=== PATIENT | female | born 1955 | race Caucasian/White ===

== ENCOUNTER 2024-10-05 13:36 | Inpatient (IN) | payer BC, MEDICAID ==
[~2024-10-05] VITALS: Ht 152.4 cm; Wt 68.0 kg
[2024-10-05] MEDS ORDERED: POLY250017 PO (13:51)
[2024-10-05] MEDS ORDERED: ACET-3117 PO (13:51)
[2024-10-05] MEDS ORDERED: OMEP20TA5 PO (13:51)
[2024-10-05] MEDS ORDERED: INSU100V28 SUBCUT (13:51)
[2024-10-05] MEDS ORDERED: IPRA3AMP22 IH (13:51)
[2024-10-05] MEDS ORDERED: ACET-2030 PO (13:51)
[2024-10-05 14:26] LABS: BASOPHILS # (AUTO) 0.1 K/UL (0.0-0.2); BASOPHILS % (AUTO) 1.2 % (0.0-2.0); EOSINOPHILS # (AUTO) 0.4 K/uL (0.0-0.7); EOSINOPHILS % (AUTO) 6.6 % (0.0-7.0); HEMATOCRIT 32.4 % (31.2-41.9); HEMOGLOBIN 10.3 g/dL (10.9-14.3); LYMPHOCYTES # (AUTO) 2.1 K/uL (0.8-4.8); LYMPHOCYTES % (AUTO) 38.7 % (20.5-51.5); MEAN CORPUSCULAR HEMOGLOBIN 22.9 uug (24.7-32.8); MEAN CORPUSCULAR HGB CONC 32 g/dL (32.3-35.6); MEAN CORPUSCULAR VOLUME 72.1 fL (75.5-95.3); MONOCYTES # (AUTO) 0.4 K/uL (0.1-1.30); MONOCYTES % (AUTO) 6.5 % (0.0-11.0); NEUTROPHILS # (AUTO) 2.5 K/uL (1.8-8.9); PLATELET COUNT (AUTO) 217 K/uL (179-408); RED BLOOD CELL COUNT(AUTO) 4.49 MIL/uL (3.63-4.92); WHITE BLOOD COUNT (AUTO) 5.4 K/uL (3.8-11.8)
[2024-10-05 14:39] LABS: DIFFERENTIAL COMMENT 1
[2024-10-05 14:42] LABS: CALCIUM 9.1 mg/dL (8.5-10.1); CARBON DIOXIDE 23 mmol/L (21-32); CHLORIDE 102 mmol/L (98-107); CREATININE 0.8 mg/dL (0.6-1.3); GLUCOSE 142 mg/dL (74-106); POTASSIUM 3.9 mmol/L (3.5-5.1); SODIUM SERUM 137 mmol/L (136-145); UREA NITROGEN, BLOOD 9 mg/dL (7-18)
[2024-10-05 14:55] LABS: ALANINE AMINOTRANSFERASE 15 U/L (14-59); ALBUMIN 3.5 g/dL (3.4-5.0); ALKALINE PHOSPHATASE 100 U/L (50-136); ASPARTATE AMINOTRANSFERASE 15 U/L (15-37); BILIRUBIN,DIRECT 0.2 mg/dL (0.0-0.2); BILIRUBIN,TOTAL 0.4 mg/dL (0.2-1.0); NT-PRO BNP 621 pg/mL (0-125); TOTAL PROTEIN, SERUM 7.3 g/dL (6.4-8.2)
[2024-10-05] MEDS ORDERED: SWABABLE VALVE TRANSFER SET EA MC ONE (16:23)
[2024-10-05] MEDS ORDERED: IOHEXOL 350 100 ML INFUS..BTL ONE (16:24)
[2024-10-05] MEDS ORDERED: IV NORMAL SALINE 250 ML IV ONE (16:24)
[2024-10-05] MEDS ORDERED: METF-442 PO (16:32)
[2024-10-05] MEDS ORDERED: REMEDY ESSENTIAL ZINC PASTE 113 GM TP PRN (17:00)
[2024-10-05] MEDS ORDERED: ONDANSETRON 4 MG/2 ML VIAL IV PRN (17:00)
[2024-10-05] MEDS ORDERED: DEXTROSE 50% 50 ML DISP.SYRIN IV PRN (17:00)
[2024-10-05] MEDS ORDERED: MAGNESIUM HYDROXIDE 30 ML LIQUID UDC PO PRN (17:00)
[2024-10-05] MEDS: ENOXAPARIN SODIUM 80 MG/0.8 ML DISP.SYRIN SQ ONE (17:45)
[2024-10-05] MEDS ORDERED: ASPIRIN 325 MG TABLET ONE (17:48)
[2024-10-05] MEDS ORDERED: ENOXAPARIN SODIUM 40 MG/0.4 ML DISP.SYRIN SQ ONE (17:48)
[2024-10-05] MEDS: ASPIRIN 325 MG TABLET PO ONE (17:49)
[2024-10-05] MEDS: ENOXAPARIN SODIUM 40 MG/0.4 ML DISP.SYRIN SQ SCH (18:10)
[2024-10-05] MEDS ORDERED: ENOXAPARIN SODIUM 40 MG/0.4 ML DISP.SYRIN SQ SCH (18:50)
[2024-10-05 21:19] VITALS: BP 152/78; TEMP 97.9; O2SAT 97
[2024-10-05] MEDS: BLOOD SUGAR DIAGNOSTIC 1 EACH STRIP VI SCH (21:49)
[2024-10-05] MEDS: INSULIN REGULAR, HUMAN 1000 UNIT/10 ML VIAL SQ PRN (23:05)
[2024-10-06] VITALS (8 sets, daily range): BP systolic 131–181; BP diastolic 67–88; TEMP 97.4–98.5; O2SAT 92–100
[2024-10-06] MEDS: PANTOPRAZOLE SODIUM 40 MG TABLET.DR PO SCH (06:12)
[2024-10-06] MEDS: hydrALAZINE HCL 25 MG TABLET PO PRN (08:21)
[2024-10-06] MEDS: ASPIRIN 81 MG TAB.CHEW PO SCH (08:22)
[2024-10-06] MEDS: MIRALAX 17 GM POWD.PACK PO SCH (08:22)
[2024-10-06] MEDS: ACETAMINOPHEN 325 MG TABLET PO PRN (08:51)
[2024-10-06] MEDS: LOSARTAN POTASSIUM 50 MG TABLET PO SCH (08:52)
[2024-10-06] MEDS ORDERED: LOSARTAN POTASSIUM 50 MG TABLET PO SCH (09:00)
[2024-10-06] MEDS ORDERED: Medication Not On Formulary EA (Omeprazole 20 MG) PO SCH (09:00)
[2024-10-06 09:29] LABS: BASOPHILS % (AUTO) 0.9 % (0.0-2.0); EOSINOPHILS # (AUTO) 0.3 K/uL (0.0-0.7); EOSINOPHILS % (AUTO) 6.9 % (0.0-7.0); HEMATOCRIT 33.5 % (31.2-41.9); HEMOGLOBIN 10.8 g/dL (10.9-14.3); LYMPHOCYTES # (AUTO) 1.4 K/uL (0.8-4.8); LYMPHOCYTES % (AUTO) 29.6 % (20.5-51.5); MEAN CORPUSCULAR HEMOGLOBIN 23.1 uug (24.7-32.8); MEAN CORPUSCULAR HGB CONC 32 g/dL (32.3-35.6); MEAN CORPUSCULAR VOLUME 71.8 fL (75.5-95.3); MONOCYTES # (AUTO) 0.3 K/uL (0.1-1.30); MONOCYTES % (AUTO) 6.4 % (0.0-11.0); NEUTROPHILS # (AUTO) 2.6 K/uL (1.8-8.9); NEUTROPHILS % (AUTO) 56.2 % (38.5-71.5); PLATELET COUNT (AUTO) 216 K/uL (179-408); RED BLOOD CELL COUNT(AUTO) 4.67 MIL/uL (3.63-4.92); RED CELL DISTRIBUTION WIDTH 17.2 % (12.3-17.7); WHITE BLOOD COUNT (AUTO) 4.6 K/uL (3.8-11.8)
[2024-10-06 09:30] LABS: DIFFERENTIAL COMMENT 1
[2024-10-06 09:40] LABS: CALCIUM 9.3 mg/dL (8.5-10.1); CREATININE 0.7 mg/dL (0.6-1.3); MAGNESIUM 1.3 mg/dL (1.8-2.4); PHOSPHOROUS 4.9 mg/dL (2.5-4.9); POTASSIUM 3.6 mmol/L (3.5-5.1)
[2024-10-06] MEDS: MAGNESIUM SULFATE/D5W 100 ML IV SCH (11:38)
[2024-10-06] MEDS ORDERED: LISI40TA13 PO (12:07)
[2024-10-06] MEDS ORDERED: FERR-68 PO (12:07)
[2024-10-06] MEDS ORDERED: INSU100V7 SQ (12:07)
[2024-10-06] MEDS ORDERED: ASPI-1169 PO (12:07)
[2024-10-06] MEDS ORDERED: ATOR40TA PO (12:07)
[2024-10-06] MEDS ORDERED: AMLO5TAB4 PO (12:07)
[2024-10-06] MEDS: FERROUS SULFATE 325 MG TABEC PO SCH (16:07)
[2024-10-06] MEDS: INSULIN GLARGINE,HUM 300 UNITS/3 ML CARTRIDGE SQ SCH (21:00)
[2024-10-06] MEDS: ENOXAPARIN SODIUM 40 MG/0.4 ML DISP.SYRIN SQ SCH (21:00)
[2024-10-06] MEDS: ATORVASTATIN 40 MG TABLET PO SCH (21:10)
[2024-10-06] MEDS: AMLODIPINE 5 MG TABLET PO SCH (21:11)
[2024-10-07] VITALS (8 sets, daily range): BP systolic 141–190; BP diastolic 67–89; TEMP 97.6–98.1; O2SAT 98–99
[2024-10-07] MEDS ORDERED: AMLODIPINE 5 MG TABLET PO SCH ×2 (09:00→21:00)
[2024-10-07] MEDS ORDERED: ASPIRIN 81 MG TAB.CHEW PO SCH (09:00)
[2024-10-07] MEDS ORDERED: AMLO10TA59 PO (10:22)
[2024-10-07] MEDS ORDERED: HYDR-894 PO (10:22)
[2024-10-07] MEDS ORDERED: ASPI81TA31 PO (10:22)
[2024-10-07] MEDS ORDERED: Insulin Glargine,Hum SQ (10:22)
[2024-10-07] MEDS ORDERED: LOSA50TA3 PO (10:22)
[2024-10-07] MEDS: hydrALAZINE HCL 25 MG TABLET PO ONE (16:39)
[2024-10-07] MEDS: AMLODIPINE 10 MG TABLET PO SCH (20:34)
[2024-10-07] MEDS: MUPIROCIN 2% OINT 22 GM TUBE NS SCH (20:35)
[2024-10-07] MEDS: hydrALAZINE HCL 10 MG TABLET PO SCH (22:34)
[2024-10-08] VITALS (7 sets, daily range): BP systolic 120–191; BP diastolic 61–106; TEMP 97.9–98.5; O2SAT 94–100
[2024-10-08] MEDS ORDERED: HYDR-894 PO (13:43)
[2024-10-08] MEDS: hydrALAZINE HCL 25 MG TABLET PO SCH (15:01)
[2024-10-08] MEDS: hydrALAZINE HCL 20 MG/1 ML VIAL IV ONE (16:01)
[2024-10-08] MEDS: LORAZEPAM 0.5 MG TABLET PO ONE (18:20)
[2024-10-08] MEDS ORDERED: ALPRAZOLAM 0.5 MG TABLET PO PRN (20:45)
[2024-10-09 00:30] VITALS: BP 155/72; TEMP 97.8; O2SAT 99
[2024-10-09 04:30] VITALS: BP 121/60; TEMP 97.8; O2SAT 97
[2024-10-09 07:36] VITALS: BP 151/69; TEMP 98.2; O2SAT 100
[2024-10-09 11:28] VITALS: BP 169/73; TEMP 98.2; O2SAT 98
[2024-10-09] MEDS: hydrALAZINE HCL 50 MG TABLET PO SCH (14:49)
[2024-10-09 15:09] VITALS: BP 129/59; TEMP 98; O2SAT 99
[2024-10-09 20:30] VITALS: BP 136/64; TEMP 98.4; O2SAT 96
[2024-10-10] VITALS: BP 134/68; TEMP 98.1; O2SAT 99
[2024-10-10 04:30] VITALS: BP 138/54; TEMP 98.1; O2SAT 97
[2024-10-10 07:29] VITALS: BP 148/69; TEMP 98.4; O2SAT 97
[2024-10-10 09:06] VITALS: BP 188/89
[2024-10-10 09:08] VITALS: TEMP 98.5
== END 2024-10-10 10:30 | disposition left against medical advice (07) | DRG 281 ==
LOC: ER 13:36 → TRANSITION 17:22 → TELE3 18:29
PROVIDERS: ADMIT Nurse Practitioner Acute Care; ATTEND Nurse Practitioner Acute Care
PROC: 05HB33Z Insertion of Infusion Device into Right Basilic Vein, Percutaneous Approach (ICD-10-PCS; principal; 2024-10-05)
DX: I16.0 Hypertensive urgency (principal); C77.1 Secondary and unspecified malignant neoplasm of intrathoracic lymph nodes; I21.A1 Myocardial infarction type 2; R79.1 Abnormal coagulation profile; J44.9 Chronic obstructive pulmonary disease, unspecified; J43.2 Centrilobular emphysema; E66.9 Obesity, unspecified; Z68.29 Body mass index [BMI] 29.0-29.9, adult; F17.210 Nicotine dependence, cigarettes, uncomplicated; Z91.148 Patient's other noncompliance with medication regimen for other reason; F41.9 Anxiety disorder, unspecified; G47.00 Insomnia, unspecified; Z22.322 Carrier or suspected carrier of Methicillin resistant Staphylococcus aureus; E78.5 Hyperlipidemia, unspecified; Z79.84 Long term (current) use of oral hypoglycemic drugs; C80.1 Malignant (primary) neoplasm, unspecified; I88.9 Nonspecific lymphadenitis, unspecified; E11.43 Type 2 diabetes mellitus with diabetic autonomic (poly)neuropathy; E11.65 Type 2 diabetes mellitus with hyperglycemia; K31.84 Gastroparesis; I11.9 Hypertensive heart disease without heart failure; Z79.4 Long term (current) use of insulin; Z53.29 Procedure and treatment not carried out because of patient's decision for other reasons; Z71.6 Tobacco abuse counseling
CPT/HCPCS: 36415; 70450; 71045; 83735; 84100; 84484; 85025; 85730; 93307; G0378; J0360; J1650; J1815; J3475; Q9967

== ENCOUNTER 2024-10-19 10:55 | Emergency (ER) | payer BC, MEDICAID ==
[~2024-10-19] VITALS: Ht 152.4 cm; Wt 72.6 kg
[~2024-10-19 10:55] MED LIST: ACET-2030 PO; ACET-3117 PO; AMLO10TA59 PO; ASPI-1169 PO; ASPI81TA31 PO; ATOR40TA PO; FERR-68 PO; HYDR-894 PO; INSU100V28 SUBCUT; INSU100V7 SQ; IPRA3AMP22 IH; Insulin Glargine,Hum SQ; LOSA50TA3 PO; METF-442 PO; OMEP20TA5 PO; POLY250017 PO
[2024-10-19 11:31] LABS: BASOPHILS % (AUTO) 0.9 % (0.0-2.0); EOSINOPHILS # (AUTO) 0.2 K/uL (0.0-0.7); EOSINOPHILS % (AUTO) 3.3 % (0.0-7.0); HEMATOCRIT 33.1 % (31.2-41.9); HEMOGLOBIN 10.6 g/dL (10.9-14.3); LYMPHOCYTES # (AUTO) 1.8 K/uL (0.8-4.8); LYMPHOCYTES % (AUTO) 33.6 % (20.5-51.5); MEAN CORPUSCULAR HEMOGLOBIN 23.2 uug (24.7-32.8); MEAN CORPUSCULAR HGB CONC 32 g/dL (32.3-35.6); MONOCYTES # (AUTO) 0.3 K/uL (0.1-1.30); MONOCYTES % (AUTO) 5.1 % (0.0-11.0); NEUTROPHILS % (AUTO) 57.1 % (38.5-71.5); PLATELET COUNT (AUTO) 205 K/uL (179-408); RED BLOOD CELL COUNT(AUTO) 4.54 MIL/uL (3.63-4.92); RED CELL DISTRIBUTION WIDTH 17.1 % (12.3-17.7); WHITE BLOOD COUNT (AUTO) 5.3 K/uL (3.8-11.8)
[2024-10-19 11:31] LABS: *BILIRUBIN,URIN NEGATIVE (NEGATIVE); *BLOOD, URINE NEGATIVE (NEGATIVE); *CLARITY,URINE CLEAR (CLEAR); *COLOR,URINE YELLOW (YELLOW); *KETONES,URINE NEGATIVE (NEGATIVE); *PROTEIN,URINE NEGATIVE (NEGATIVE); LEUKOCYTE ESTERASE ,URINE 1+ (NEGATIVE); NITRITE, URINE NEGATIVE (NEGATIVE); UGLUCOSE NEGATIVE (NEGATIVE)
[2024-10-19 11:39] LABS: CALCIUM 9.7 mg/dL (8.5-10.1); CREATININE 0.9 mg/dL (0.6-1.3); POTASSIUM 3.6 mmol/L (3.5-5.1)
[2024-10-19 11:42] LABS: DIFFERENTIAL COMMENT 1
[2024-10-19 11:44] LABS: ALBUMIN 3.9 g/dL (3.4-5.0); BILIRUBIN,DIRECT 0.1 mg/dL (0.0-0.2); BILIRUBIN,TOTAL 0.4 mg/dL (0.2-1.0); TOTAL PROTEIN, SERUM 7.8 g/dL (6.4-8.2)
[2024-10-19 12:33] LABS: IRON, SERUM 60 ug/dL (50-175)
[2024-10-19] MEDS ORDERED: CYANOCOBALAMIN 1000 MCG/ML VIAL ONE (12:50)
[2024-10-19] MEDS: CYANOCOBALAMIN 1000 MCG/ML VIAL IM ONE (12:55)
[2024-10-19 12:58] LABS: BACTERIA,URINE MANY /HPF (NONE SEEN); RBC,URINE 0-3 /HPF (0-3); SQUAMOUS EPITHELIAL CELL,UR FEW /HPF (NONE SEEN)
[2024-10-19] MEDS ORDERED: IPRA4AER IH (14:05)
[2024-10-19] MEDS ORDERED: METF-440 PO (14:05)
[2024-10-19] MEDS ORDERED: HYDR-894 PO (14:05)
[2024-10-19] MEDS ORDERED: LOSA50TA39 PO (14:05)
[2024-10-19] MEDS ORDERED: AMLO10TA59 PO (14:05)
[2024-10-19 14:58] VITALS: BP 133/72; TEMP 98.7; O2SAT 100
== END 2024-10-19 14:58 | disposition home or self-care (01) ==
LOC: ER 10:55
DX: D50.9 Iron deficiency anemia, unspecified (principal); R41.0 Disorientation, unspecified; E11.43 Type 2 diabetes mellitus with diabetic autonomic (poly)neuropathy; E53.8 Deficiency of other specified B group vitamins; E78.5 Hyperlipidemia, unspecified; I10 Essential (primary) hypertension; J44.9 Chronic obstructive pulmonary disease, unspecified; K21.9 Gastro-esophageal reflux disease without esophagitis; M19.90 Unspecified osteoarthritis, unspecified site; Z79.4 Long term (current) use of insulin; Z79.82 Long term (current) use of aspirin; Z79.84 Long term (current) use of oral hypoglycemic drugs; Z79.899 Other long term (current) drug therapy; Z87.01 Personal history of pneumonia (recurrent)
CPT/HCPCS: 99283; 80076; 80048; 81001; 82607; 83550; 85025; 85044; 87086; 36415; 96372; J3420; 70030-TC; A4606; A4663